=== PATIENT | male | born 1955 | race Caucasian/White ===

== ENCOUNTER 2022-12-28 17:59 | Inpatient (IN) | payer OTHER ==
[2022-12-28 18:25] VITALS: BMI 26.6
[2022-12-28] MEDS ORDERED: ACETAMINOPHEN 1000 MG/100 ML BAG IVPB ONE (18:26)
[2022-12-28] MEDS ORDERED: SODIUM CHLORIDE 0.9% 500 ML INFUS.BAG IV ONE (18:28)
[2022-12-28] MEDS ORDERED: ACETAMINOPHEN INJECTION 100 ML IVPB ONE (18:29)
[2022-12-28 18:43] LABS: BASO % 0.3 % (0-2.0); HEMATOCRIT 31.2 % (35.4-49); HEMOGLOBIN 10.1 GM/dL (11.7-16.9); MCH 24.6 pg (25.7-33.7); MCHC 32.3 g/dl (32.0-35.9); MEAN CELL VOLUME 76.3 fl (80-96); MEAN PLT VOLUME 8.1 fl (7.5-11.1); MONO % 6.4 % (3.8-10.2); NEUT % 88.3 % (42.8-82.8); PLATELET COUNT 475 10^3/uL (134-434); RBC 4.09 M/mm3 (4.00-5.60); RDW 16.7 % (11.9-15.9); WHITE BLOOD COUNT 18.3 K/mm3 (4.0-10.0)
[2022-12-28 18:45] LABS: VENOUS BASE EXCESS 2.5 mmol/L (-2-2); VENOUS O2 SATURATION 95.4 % (70-80); VENOUS PCO2 37.1 mmHg (38-52); VENOUS PH 7.466 (7.310-7.410)
[2022-12-28] MEDS ORDERED: PIPERACILLIN/TAZOB 4.5 GM 4.5 GM in DEXTROSE 5%-WATER 100 ML IVPB ONE (18:48)
[2022-12-28 18:49] LABS: INR 1.44 (0.83-1.09); PROTHROMBIN TIME (PATIENT) 16.6 SEC (9.7-13.0)
[2022-12-28] MEDS ORDERED: VANCOMYCIN/WATER 1,250 MG/250 ML BAG (RESTRICTED TO ID ONLY) IVPB ONE (18:49)
[2022-12-28] MEDS ORDERED: PIPERACILLIN/TAZOB 4.5 GM 4.5 GM/100 ML BAG IVPB ONE (18:53)
[2022-12-28 19:19] LABS: ALBUMIN 2.2 g/dl (3.4-5.0); BLOOD UREA NITROGEN 23.6 mg/dL (7-18); CALCIUM 9.4 mg/dL (8.5-10.1)
[2022-12-28 19:24] LABS: BILIRUBIN,TOTAL 0.4 mg/dL (0.2-1); CREATININE 0.8 mg/dL (0.55-1.3); TOT PROT 7.4 g/dl (6.4-8.2)
[2022-12-28] MEDS ORDERED: KETOROLAC TROMETHAMINE 15 MG/ML VIAL IVPUSH ONE (19:52)
[2022-12-28] MEDS ORDERED: LACTATED RINGERS SOLUTION 1000 ML INFUS.BAG IV ONE (20:04)
[2022-12-28] MEDS ORDERED: VANCOMYCIN/WATER 1250 MG 1,250 MG/250 ML BAG IVPB ONE (20:11)
[2022-12-28] MEDS ORDERED: KETOROLAC TROMETHAMINE 15 MG/ML VIAL ONE (20:11)
[2022-12-28] MEDS ORDERED: MELATONIN 5 MG TABLETS PO PRN (22:51)
[2022-12-29] MEDS ORDERED: ACETAMINOPHEN 325 MG TABLET (FP) PO PRN (00:30)
[2022-12-29] MEDS: PIPERACILLIN/TAZOB 4.5 GM 4.5 GM in DEXTROSE 5%-WATER 100 ML IVPB SCH ×2 (04:45→08:30)
[2022-12-29] MEDS: GABAPENTIN 300 MG CAPSULE PO SCH ×3 (05:53→22:58)
[2022-12-29 06:38] LABS: URINE APPEARANCE CLEAR; URINE BILIRUBIN NEGATIVE (NEGATIVE); URINE COLOR YELLOW; URINE GLUCOSE (UA) 3+ (NEGATIVE); URINE KETONE TRACE (NEGATIVE); URINE LEUK ESTERASE NEGATIVE (NEGATIVE); URINE NITRITE NEGATIVE (NEGATIVE); URINE PROTEIN TRACE (NEGATIVE); URINE UROBILINOGEN 0.2 mg/dL (0.2-1.0)
[2022-12-29] MEDS ORDERED: VANCOMYCIN/WATER FOR INJ (PEG) 1,000 MG/200 ML BAG IVPB SCH (08:00)
[2022-12-29] MEDS: TAMSULOSIN HCL 0.4 MG CAP PO SCH (08:30)
[2022-12-29] MEDS: INSULIN SLIDING SCALE (NOVOLOG) 1 VIAL SQ SCH ×4 (08:45→23:10)
[2022-12-29] MEDS: LACTOBACILLUS ACIDOPHILUS 1 TABLET PO SCH (10:07)
[2022-12-29] MEDS: ASCORBIC ACID 500 MG TABLET (FP) PO SCH (10:07)
[2022-12-29] MEDS: PANTOPRAZOLE 20 MG TABLET PO SCH (10:07)
[2022-12-29] MEDS: ASPIRIN COATED 81 MG TABLET.EC PO SCH (10:07)
[2022-12-29] MEDS: RIVAROXABAN 20 MG TABLET PO SCH (17:27)
[2022-12-29] MEDS: PIPERACILLIN/TAZOB 3.375 GM 3.375 GM in DEXTROSE 5%-WATER - 50 ML IVPB SCH (17:27)
[2022-12-29] MEDS ORDERED: MIRTAZAPINE 30 MG TABLET PO SCH (22:00)
[2022-12-29] MEDS ORDERED: MIRTAZAPINE 15 MG TABLET (FP) ONE (22:11)
[2022-12-29] MEDS ORDERED: MIRTAZAPINE 15 MG TABLET (FP) PO SCH (22:14)
[2022-12-29] MEDS: rOPINIRole HCL 0.5 MG TABLET PO SCH (22:58)
[2022-12-29] MEDS: ATORVASTATIN CA 80 MG TABLET (FP) PO SCH (22:58)
[2022-12-29] MEDS: DOCUSATE SODIUM 100 MG CAPSULE (FP) PO SCH (22:58)
[2022-12-29] MEDS: traZODone HCL 50 MG TABLET (FP) PO SCH (22:58)
[2022-12-29] MEDS: MIRTAZAPINE 15 MG TABLET (FP) PO SCH (22:58)
[2022-12-29] MEDS ORDERED: INSULIN (NOVOLOG) ASPART 100 UNITS/ML 10ML VIAL ONE (23:05)
[2022-12-29] MEDS ORDERED: POLYETHYLENE GLYCOL (HEALTHYLAX) 3350 17 GM PACKET PO ONE (23:15)
[2022-12-29] MEDS: oxyCODONE HCL 5 MG TABLET PO PRN (23:16)
[2022-12-30] MEDS: PIPERACILLIN/TAZOB 3.375 GM 3.375 GM in DEXTROSE 5%-WATER - 50 ML IVPB SCH ×3 (01:19→17:08)
[2022-12-30] MEDS ORDERED: PIPERACILLIN/TAZOB 4.5 GM 4.5 GM in DEXTROSE 5%-WATER 100 ML IVPB SCH (03:00)
[2022-12-30] MEDS: GABAPENTIN 300 MG CAPSULE PO SCH ×3 (05:49→21:59)
[2022-12-30] MEDS: INSULIN SLIDING SCALE (NOVOLOG) 1 VIAL SQ SCH ×4 (06:19→22:06)
[2022-12-30] MEDS ORDERED: VANCOMYCIN/WATER FOR INJ (PEG) 1,000 MG/200 ML BAG IVPB SCH (08:00)
[2022-12-30] MEDS: TAMSULOSIN HCL 0.4 MG CAP PO SCH (09:22)
[2022-12-30] MEDS: LACTOBACILLUS ACIDOPHILUS 1 TABLET PO SCH (09:22)
[2022-12-30] MEDS: ASPIRIN COATED 81 MG TABLET.EC PO SCH (09:22)
[2022-12-30] MEDS: PANTOPRAZOLE 20 MG TABLET PO SCH (09:22)
[2022-12-30] MEDS: ASCORBIC ACID 500 MG TABLET (FP) PO SCH (09:23)
[2022-12-30] MEDS: oxyCODONE HCL 5 MG TABLET PO PRN ×2 (09:29→21:59)
[2022-12-30] MEDS ORDERED: VANCOMYCIN PREMIX 1.5 GM 1,500 MG/300 ML BAG IVPB ONE ×2 (14:02→15:00)
[2022-12-30] MEDS: RIVAROXABAN 20 MG TABLET PO SCH (17:09)
[2022-12-30] MEDS: ATORVASTATIN CA 80 MG TABLET (FP) PO SCH (21:59)
[2022-12-30] MEDS: MIRTAZAPINE 15 MG TABLET (FP) PO SCH (21:59)
[2022-12-30] MEDS: traZODone HCL 50 MG TABLET (FP) PO SCH (21:59)
[2022-12-30] MEDS: rOPINIRole HCL 0.5 MG TABLET PO SCH (21:59)
[2022-12-30] MEDS: DOCUSATE SODIUM 100 MG CAPSULE (FP) PO SCH (21:59)
[2022-12-30 22:29] VITALS: RESP 20
[2022-12-31 00:57] VITALS: BP 113/73; PULSE 94; TEMP 98.4
== END 2022-12-31 01:00 | disposition short-term general hospital (02) | DRG 871 ==
LOC: JER 17:59 → JERBED 22:05 → J4W 12-29 01:59
PROVIDERS: ADMIT Internal Medicine; ATTEND Internal Medicine
DX: A41.50 Gram-negative sepsis, unspecified (principal); G93.41 Metabolic encephalopathy; I24.8 Other forms of acute ischemic heart disease; I69.359 Hemiplegia and hemiparesis following cerebral infarction affecting unspecified side; I48.92 Unspecified atrial flutter; E11.621 Type 2 diabetes mellitus with foot ulcer; L97.529 Non-pressure chronic ulcer of other part of left foot with unspecified severity; E11.51 Type 2 diabetes mellitus with diabetic peripheral angiopathy without gangrene
CPT/HCPCS: 0241U-QW; 36415; 71045-TC-FY; 73590-TC-LT-FY; 73610-TC-LT-FY; 73630-TC-LT; 75635-TC; 80053; 81003; 82550; 82553; 82803; 82962; 83605; 84484; 85025; 85610; 85730; 86850; 86900; 86901; 87040; 87070; 87077; 87186; 87205; 93005; 93010; 93306-TC; 99291; C9803-CS; Q9967; U0003; U0005

== ENCOUNTER 2024-05-12 20:29 | Emergency (ER) | payer BC, OTHER ==
[2024-05-12 20:34] VITALS: RESP 18; BMI 22.7
[2024-05-13 04:07] VITALS: BP 110/72; PULSE 86; TEMP 98.2
== END 2024-05-13 04:10 | disposition home or self-care (01) ==
LOC: JER 20:29
DX: R41.82 Altered mental status, unspecified (principal); Y04.0XXA Assault by unarmed brawl or fight, initial encounter
CPT/HCPCS: 82962; 99283-25